=== PATIENT | female | born 1995 | race Caucasian/White ===

== ENCOUNTER 2019-12-29 20:52 | Emergency (ER) | payer BC ==
[2019-12-29] MEDS ORDERED: IBUPROFEN 600 MG TAB PO STA (21:21)
--- NOTE | 2019-12-29 21:48 | XR ---
EXAMINATION TYPE: XR chest 1V DATE OF EXAM: 12/29/2019 COMPARISON: NONE HISTORY: Cough and fever TECHNIQUE: Single view FINDINGS: Heart and mediastinum are normal. Lungs are clear. Diaphragm is normal. Bony thorax appears normal. IMPRESSION: Normal chest
--- NOTE | 2019-12-29 22:12 | ED ---
General Adult HPI - General Chief complaint: Upper Respiratory Infection Stated complaint: SOB,Covid exposure Time Seen by Provider: 12/29/19 20:59 Source: patient, RN notes reviewed, old records reviewed Mode of arrival: ambulatory Limitations: no limitations - History of Present Illness Initial comments: 24-year-old female patient to ED for probable Covid infection. Patient reports that she was exposed to a known Covid positive. She reports that last week she has been starting to feel sick. Mild dry cough. Waxing and waning fevers. Denies any focal area of pain or any other areas of discomfort. Reports that she is coming for a Covid test. Systemic: Pt denies fatigue, rash. Pt denies weakness, night sweats, weight loss. Neuro: Pt denies headache, visual disturbances, syncope or pre-syncope. HEENT: Pt denies ocular discharge or irritation, otalgia, rhinorrhea, pharyngitis or notable lymphadenopathy. Cardiopulmonary: Pt denies chest pain, SOB, heart palpitations, dyspnea on exertion. Abdominal/GI: Pt denies abdominal pain, n/v/d. : Pt denies dysuria, burning w/ urination, frequency/urgency. Denies new onset urinary or bowel incontinence. MSK: Pt denies myalgia, loss of strength or function in extremities. Neuro: Pt denies new onset weakness, paresthesias. - Related Data Previous Rx's Medication Instructions Recorded Ascorbic Acid [Vitamin C] 500 mg PO BID 7 Days #14 tablet 12/29/19 Cholecalciferol [Vitamin D3 (25 1,000 unit PO DAILY 7 Days #7 12/29/19 Mcg = 1000 Iu)] tablet Melatonin 3 mg PO HS 7 Days #7 tablet 12/29/19 Zinc Sulfate 220 mg PO Q24HR 7 Days #7 capsule 12/29/19 Allergies Allergy/AdvReac Type Severity Reaction Status Date / Time No Known Allergies Allergy Verified 12/29/19 20:58 Review of Systems ROS Statement: Those systems with pertinent positive or pertinent negative responses have been documented in the HPI. ROS Other: All systems not noted in ROS Statement are negative. Past Medical History Past Medical History: No Reported History History of Any Multi-Drug Resistant Organisms: None Reported Past Surgical History: No Surgical Hx Reported Past Psychological History: No Psychological Hx Reported Smoking Status: Never smoker Past Alcohol Use History: Occasional Past Drug Use History: None Reported General Exam - General Exam Comments Initial Comments: Constitutional: NAD, AOX3, Pt has pleasant affect. HEENT: NC/AT, trachea midline, neck supple, no lymphadenopathy. Posterior pharynx non erythematous, without exudates. External ears appear normal, without discharge. Mucous membranes moist. Eyes PERRLA, EOM intact. There is no scleral icterus. No pallor noted. Cardiopulmonary: RRR, no murmurs, rubs or gallops, no JVD noted. Lungs CTAB in anterior and posterior wallace. No peripheral edema. Abdominal exam: Abdomen soft and non-distended. Abdomen non-tender to palpation in all 4 quadrants. Bowel sounds active in LLQ. No hepatosplenomegaly. No ecchymosis Neuro: CN II-XII grossly intact. No nuchal rigidity. No raccon eyes, no mclaughlin sign, no hemotympanum. No cervical spinal tenderness. MSK: No posterior calf tenderness bilaterally, homans sign negative bilaterally. Posterior tibialis and radial pulse +2 bilaterally. Sensation intact in upper and lower extremities. Full active ROM in upper and lower extremities, 5/5 stregnth. Limitations: no limitations Course Vital Signs 12/29/19 20:54 Temperature 102.1 F H Pulse Rate 135 H Respiratory 20 Rate Blood Pressure 112/68 O2 Sat by Pulse 98 Oximetry Medical Decision Making - Medical Decision Making 24-year-old female patient to ED for Covid exposure fever and cough. Physical exam negative for acute pathology. Vital signs he display fever patient administered antipyretic. Chest x-ray negative for pneumonia. Other tests pending. Patient will be discharged with follow-up with primary care provider. Patient was prescribed zinc vitamin C and vitamin D. Will be discharged with outpatient follow-up and return precautions. Case discussed with Dr. Beebe. Disposition Clinical Impression: Suspected COVID-19 virus infection Disposition: HOME SELF-CARE Condition: Serious Instructions (If sedation given, give patient instructions): Upper Respiratory Infection in Children (ED) Additional Instructions: Take vitamins as directed. Follow up with PCP tomorrow. Return to ED with if your symptoms or breathing worsen. Self quarantine. Use tylenol and motrin for fever. Drink lots of fluids. Prescriptions: Melatonin 3 mg PO HS 7 Days #7 tablet Ascorbic Acid [Vitamin C] 500 mg PO BID 7 Days #14 tablet Cholecalciferol [Vitamin D3 (25 Mcg = 1000 Iu)] 1,000 unit PO DAILY 7 Days #7 tablet Zinc Sulfate 220 mg PO Q24HR 7 Days #7 capsule Is patient prescribed a controlled substance at d/c from ED?: No Referrals: Erick William MD [Primary Care Provider] - 1-2 days
[2019-12-29 22:29] VITALS: BP 104/76; PULSE 92; RESP 18; TEMP 98.6
== END 2019-12-29 22:38 | disposition home or self-care (01) ==
LOC: EC 20:52
DX: R05 Cough (principal); R50.9 Fever, unspecified; Z20.828 Contact with and (suspected) exposure to other viral communicable diseases
CPT/HCPCS: 71045; 99285; U0003